=== PATIENT | male | born 1940 | race Caucasian/White ===

== ENCOUNTER 2019-02-25 11:15 | Inpatient (IN) ==
[2019-02-25] MEDS ORDERED: ZOFRAN IV ONE (11:36)
[2019-02-25] MEDS ORDERED: NS 1,000 ML IV ONE (11:36)
[2019-02-25 11:54] LABS: BASO# 0.01 X1000 (0.0-0.2); BASO% 0.1 % (0.0-0.8); EOS# 0.01 X1000 (0.0-0.7); EOS% 0.1 % (0.0-10.0); HEMATOCRIT 16.8 % (42.0-52.0); HEMOGLOBIN 5.4 g/dL (14.0-18.0); IMM GRAN# 0.09 X1000 (0.0-0.04); IMM GRAN% 1.2 % (0.0-0.5); LYMPH# 0.26 X1000 (1.2-3.4); LYMPH% 3.6 % (20.5-51.1); MCH 33.5 PG (27-31); MCHC 32.1 g/dL (33-37); MCV 104.3 FL (81-99); MONO# 0.61 X1000 (0.11-0.59); MONO% 8.3 % (1.7-9.3); MPV 8.7 FL (7.4-10.4); NEUT# 6.34 X1000 (1.4-6.5); NEUT% 86.7 % (42.2-75.2); PLT 278 X1000 (130-400); RBC 1.61 XMIL (4.7-6.1); RDW 15.9 % (11.5-14.5); WBC 7.32 X1000 (4.8-10.8)
[2019-02-25 12:00] LABS: AGAP 10; ALBUMIN 3.3 g/dL (3.5-5.0); ALKALINE PHOSPHATASE 35 U/L (32-122); BUN 20 mg/dL (8-22); CALCIUM 7.7 mg/dL (8.8-10.2); CHLORIDE 99 mmol/L (98-107); COSMO 268; ESTIMATED GFR > 60; GLUCOSE 143 mg/dL (70-104); GOT 13 U/L (10-34); GPT 7 U/L (10-44); POTASSIUM 4.4 mmol/L (3.5-5.1); SODIUM 131 mmol/L (136-145); TCO2 22 mmol/L (25-35); TOTAL PROTEIN 5.8 g/dL (6.3-8.3)
[2019-02-25] MEDS ORDERED: NS 500 ML IV ONE (12:02)
[2019-02-25 12:18] LABS: LYMPHS 14 % (21-51); MONO 10 % (1-9); SEGS 76 % (42-75)
[2019-02-25 12:19] LABS: ANISOCYTOSIS 1+; HYPOCHROM 3+; MICROCYTOSIS 2+
[2019-02-25 12:50] LABS: IRON SATURATION 23 %; TIBC 179 ug/dL; TOTAL IRON 42 ug/dL (53-167); UNBOUND IRON 137 ug/dL (112-346)
[2019-02-25 12:51] LABS: INR 1.06; PROTIME 14.3 Seconds (11.0-16.0)
[2019-02-25 12:56] LABS: PTT 35.6 Seconds (22.3-41.8)
[2019-02-25] MEDS ORDERED: PROTONIX IV SCH (13:00)
[2019-02-25] MEDS ORDERED: SODIUM CHLORIDE 0.9% INJ SCH ×2 (13:00→21:00)
[2019-02-25] MEDS ORDERED: ZOFRAN IV PRN (13:01)
[2019-02-25] MEDS ORDERED: TYLENOL PO PRN (13:01)
--- NOTE | 2019-02-25 13:02 | Diag Imaging Result Doc PS360 ---
EXAM: FLAT/UPRIGHT ABD/1 VIEW CHEST HISTORY: anemia/sob TECHNIQUE: Flat and upright with chest, three views COMPARISON: 10/01/2012 FINDINGS: The lungs are well expanded. Left granuloma. No cardiomegaly. No pneumonia. No free air beneath the diaphragm. The gallbladder has been removed. No organomegaly. There is stool throughout the colon. IMPRESSION: [id number] constipation. Electronically signed by Lul Anguiano 02/25/2019 1:00 PM
[2019-02-25] MEDS ORDERED: NS 500 ML ONE (14:03)
--- NOTE | 2019-02-25 14:52 | HISTORY AND PHYSICAL ---
PRIMARY CARE PROVIDER: Dr. Americo Pace. CHIEF COMPLAINT: Passed out. HISTORY OF PRESENT ILLNESS: Mr. Pancho Elizabeth is a 78-year-old male with a medical history of melanoma diagnosed back in 2013 where he had an excision approximately a year ago in 2018. He had some left neck swelling, swollen lymph nodes and was started on chemotherapy specifically Mektovi and Braftovi followed by Dr. Julien Reyes with [facility]. Patient states for at least a year he has had progressive weakness and fatigue just gradual, and then since Saturday he noticed the weakness was much more worse and gradual. On Saturday, he noticed that his weakness and fatigue had worsened and then yesterday developed some stomach pain and nausea. He was headed to the kitchen to make something to eat and passed out. After waking up on the floor, he crawled to a garbage can and vomited. Color is unknown. He then had incontinence of stool with a trace or small amount of blood in it. The rest of the stool he states was brown and loose. He denies any fever or chills. He states that he had no shortness of breath or chest pain. Denies any ringing of the ears. He had noticed that he had been having more swelling in his feet and ankles. He has had at least a 10 pound weight loss over the last 1-1/2 months. He also stated his taste buds have since changed in the last month and a half, and decrease in his appetite. He has had an exercise intolerance over the last 3 to 4 months. He had at one point in time been diagnosed with iron-deficiency anemia, and only took about a month's worth of iron replacement, but stopped that as well. He has one hemorrhoid but states he does not usually have any bleeding from it. He has had a history of GERD with peptic ulcer disease. He states he was treated for H. Pylori in the . His last EGD was in 2003. No recent blood transfusions required. He has also noted for the last year he has had some mild dysphagia that comes and goes, and claims to have had some black stools that has been off and on over the last few months. Otherwise, prior to yesterday, he has not had any other issues. We will admit to [facility] as he has a significant anemia with a hemoglobin of 5.4 and hematocrit 16.8. Currently, vital signs are stable but is likely orthostatic. There was no acute bleeding noted at this time. We will consult Dr. Benitez with [facility] who is honey liquefier, and will consult Dr. Alvarez who is with Gastroenterology for any further recommendations. He will also receive 2 units of packed red blood cells for transfusion, and we will put him on a clear liquid diet for now along with IV Protonix and oral Carafate. PAST MEDICAL HISTORY: 1. Melanoma in 2013. 2. Left neck swelling with lymph nodes with return of cancer in 2019 on daily chemo Mektovi and Braftovi. 3. Chronic back pain. 4. GERD with peptic ulcer disease history. 5. BPH. 6. Iron deficiency anemia. 7. Hemorrhoids. PAST SURGICAL HISTORY: 1. Cancer and melanoma excision. 2. Partial thyroidectomy due to a non cancerous nodule. 3. Cholecystectomy. 4. Last EGD in 2003. SOCIAL HISTORY: No tobacco, maybe a glass of wine once or twice a year. Denies illicit drug use. He is . No kids. 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 Ambulates without difficulty, but has had an exercise intolerance over the last 3 to 4 months. FAMILY HISTORY: He states his mother from aplastic anemia. She also had coronary artery disease with a CABG in her 70s and diabetes. His father also had coronary artery disease with a CABG in his 70s, but first had coronary disease in his 40s. ALLERGIES: Penicillin of unknown reaction as he states. It just runs in his family so he does not want to take it. He has a milk allergy. HOME MEDICATIONS: 1. Zantac 150 mg p.o. twice daily. 2. Braftovi 650 mg tablets 300 mg p.o. daily. 3. Tamsulosin 0.4 mg p.o. daily. 4. Mektovi 45 mg p.o. twice daily. 5. Proscar 5 mg p.o. daily. REVIEW OF SYSTEMS: Fourteen point review of systems are complete, and all are negative except for those mentioned above in HPI. PHYSICAL EXAMINATION: VITAL SIGNS: Temperature not recorded. Pulse rate 86, respiratory rate 14, blood pressure 117/66, O2 saturation 100% on room air. He is 5 feet 9 inches tall, 139 pounds. BMI of 20.5. GENERAL: Mr. Pancho Elizabeth is a 78-year-old male. He is in no acute distress. He is able to answer questions appropriately. HEENT: Atraumatic, normocephalic. Pupils equal, round, and reactive to light. Extraocular movements intact. Mucous membranes are dry. Sclera is pale. NECK: Trachea midline. CARDIOVASCULAR: S1, S2. Regular rate and rhythm. No rubs, gallops, murmurs. One plus lower extremity edema. +2 dorsalis and radial pulses. Negative JVD or carotid bruits. PULMONARY: Clear to auscultation. Bilateral breath sounds. No accessory muscle use or work of breathing noted. GI: Soft, nontender, and nondistended. Positive bowel sounds x4. EXTREMITIES: Moves all extremities equally. Full range of motion. NEUROLOGIC: Alert and oriented x3. Follows commands. Sensory is intact. SKIN: Warm, dry, intact and pale. LABORATORY DATA: White blood cells 7000, hemoglobin 5, hematocrit 16, and platelet count 278,000. INR is 1.06. PTT 35.6. Sodium 131, potassium 4.4, BUN 20, creatinine 1.0, glucose 143. Calcium 7.7. Iron is 42. Total iron binding capacity is 179. Iron saturation 23 and saturated iron is 137. Ferritin is pending. Bilirubin 0.20. AST 13. ALT 7. Albumin 3.3. Vitamin B12 1500. IMAGING: Chest x-ray and abdominal x-ray with [id number] constipation. Lungs are well expanded. No pneumonia. ASSESSMENT AND PLAN: 1. Syncope likely secondary to severe anemia with hemoglobin of 5 and hematocrit of 16. He is going to give blood transfusion likely due to orthostatic hypotension due to blood volume depletion, possibly severe. 2. Iron deficiency anemia with possible blood loss anemia or drug-induced anemia from the chemotherapy. We will hold that for now and consult oncology/hematology. He is going to get 2 units of blood. It is symptomatic as he did have a syncopal spell last night. Blood pressures and vital signs were stable at this time. We will do serial hemoglobin and hematocrit's. Abdominal x-ray just shows constipation. We will do IV Protonix 40 twice a day along with oral Carafate. He will be on clear liquids for now. Consult gastroenterology and hematology/oncology, and Dr. Benitez with [facility]. 3. History of melanoma in 2013 with recurrence in 2018, and is on daily Mektovi and Braftovi. Followed by Dr. Julien Reyes at [facility] in [place]. We will consult Dr. Eden Benitez with [facility] here for any further recommendations. His physician Dr. Reyes had mentioned taking him off of his chemo to give him a break. 4. Questionable GI bleed due to the anemia of 5 hemoglobin. He stated there was some trace or small amount of blood in the stool, and intermittently will have black stools, but otherwise states he has a bowel movement every other day that is normally brown in color and normal consistency. Abdominal x-ray shows constipation. 5. GERD with history of peptic ulcer disease. He takes Zantac at home. We will do IV Protonix here. GI is following. 6. BPH. He is on Proscar and Flomax. Would like to be able to get those resumed once he gets blood transfusion so he does not have hypotensive episodes. 7. Deep venous thrombosis prophylaxis. SCD's. 8. Complaints of weakness and fatigue over the past year. Physical Therapy is ordered, and should improve with blood transfusion. 9. 1+ lower extremity ankle and feet swelling. He did state that there is mention from his physician Dr. Julien Reyes at the [facility] physician that follows him that there may possibly start him on some Lasix, but they have not done that. 10. Protein calorie malnutrition. His albumin is 3.3. He has admitted to having a 10 pound weight loss over the past 1 and half months along with change in taste buds, decreased appetite, and he also admits to having some mild dysphagia that comes and goes over the past 1 year. Currently, on clear liquid diet. Can consider adding a nutritional consult. I will add that. Dictated by KADEEM Richmond for Fox Almodovar MD Addendum: Patient seen and examined by myself. Agree with KADEEM note. It reflects my assessment and plan. Patient is being admitted to hospital for anemia. We are not sure it is secondary to his chemotherapy or secondary to GI bleeding. Will transfuse 2 units of blood and will consult [facility] and will go from there. His primary care doctor, Americo Pace will be taking care of him in [facility]. cc: KADEEM Richmond MD Robert Allen, MD [facility]
--- NOTE | 2019-02-25 16:23 | PROVIDER DOCUMENTATION ---
This chart was entered by Audra Cruz Scribe, acting as scribe for Nu Jackson MD. HPI-General Adult - General Chief Complaint: Weakness Stated Complaint: SYNCOPE Time Seen by Provider: 02/25/19 11:32 Source: patient Allergies/Adverse Reactions: Patient Allergies Allergy/AdvReac Type Severity Reaction Status Date / Time milk Allergy Severe NAUSEA/VOMI Verified 10/01/12 10:59 TING Penicillins Allergy Unknown Unknown Verified 10/01/12 10:59 Home Medications: Home Medication List Medication Instructions Recorded Confirmed Last Taken Type Finasteride [Proscar] 5 mg PO DAILY 10/01/12 02/25/19 10/01/12 18:00 History Binimetinib [Mektovi] 45 mg PO BID 02/25/19 02/25/19 Unknown History Encorafenib [Braftovi] 6 tab PO DAILY 02/25/19 02/25/19 Unknown History Tamsulosin HCl 0.4 tab PO DAILY 02/25/19 02/25/19 Unknown History - History of Present Illness -Gen Adult Nature of Presenting Problems: Patient is a 78 year old male who presents to the ED via EMS with weakness. States having nausea, vomiting, diarrhea and syncope last night. Reports he is on chemo for melanoma. Denies pain. Location of Pain/Injury: reports: none Pain Radiation: reports: no radiation Quality of Pain: reports: none Severity: reports: mild Onset/Duration: reports: last night Timing: reports: still present Context/Activities at Onset: reports: light activity Associated Symptoms: reports: diarrhea, nausea, syncope, vomiting, weakness Similar Symptoms Previously?: Yes Recently seen or treated by another doctor?: Yes Review of Systems - Adult - REVIEW OF SYSTEMS - ADULT Constitutional: reports: no symptoms reported. denies: chills, fever, fatique Eyes: reports: no symptoms reported Ears, Nose, Mouth & Throat: reports: no symptoms reported Cardiovascular: reports: no symptoms reported Respiratory: reports: no symptoms reported Gastrointestinal: reports: no symptoms reported. denies: diarrhea, nausea, vomiting Genitourinary: reports: no symptoms reported Musculoskeletal: reports: see HPI, muscle weakness. denies: back pain, neck pain Integumentary: reports: no symptoms reported Neurological: reports: see HPI, syncope. denies: dizziness/vertigo, headache /migraines Psychiatric: reports: no symptoms reported Endocrine: reports: no symptoms reported Hematologic/Lymphatic: reports: no symptoms reported Allergic/Immunologic: reports: no symptoms reported All Other Systems: Reviewed and Negative Past History - Adult - PAST MEDICAL HISTORY-ADULT Review of Records: reports: Old Records Reviewed, Nursing Assessment Review, Med ications Reviewed, Social history reviewed & non-contributory. Major Childhood Illnesses: reports: denies history Cardiovascular: reports: denies history Respiratory: reports: denies history Gastrointestinal: reports: denies history Obstetrical/Gynecological: reports: denies history Genitourinary: reports: denies history Musculoskeletal: reports: denies history Neurological: reports: denies history Endocrine/Immune: reports: denies history Other Conditions: reports: other cancer (melanoma) - PRIOR SURGERIES/PROCEDURES Surgical/Procedure History: reports: reviewed, not pertinent - IMMUNIZATION STATUS Childhood Immunizations: See Nurse Assessment Flu Vaccine: See Nurse Assessment - FAMILY HISTORY Family History: reviewed, not pertinent - SOCIAL HISTORY Smoking: denies Substance Use: alcohol Alcohol Use Frequency: occasionally Physical Exam-General - PHYSICAL EXAM-ADULT Initial Vital Signs Reviewed: Yes - CONSTITUTIONAL General Appearance: alert, no apparent distress. negative: lethargic - HEAD, EARS, NOSE, MOUTH & THROAT HENMT: normocephalic/atraumatic, moist mucous membranes. negative: angioedema - RESPIRATORY Respiratory: chest non-tender, lungs clear, normal breath sounds. negative: crackles - CARDIOVASCULAR Cardiovascular: normal peripheral pulses, regular rate, rhythm. negative: tachycardia - GASTROINTESTINAL (ABDOMEN) Abdominal Exam: normal bowel sounds, non tender, soft. negative: rigid - MUSCULOSKELETAL Extremity: non-tender, normal inspection. negative: deformity, erythema - SKIN Integumentary: normal color, normal turgor, warm/dry. negative: cyanosis, ecchymosis, jaundice - NEUROLOGIC Neurologic: grossly normal. negative: aphasia, facial droop - PSYCHIATRIC Psych/Mental Status: normal mood/affect, oriented x 3. negative: anxious Progress - PLAN OF CARE/RESULTS Progress/Plan/Lab Results: Vital Signs - 8 hr 02/25/19 10:58 Pulse Rate 86 Respiratory Rate 14 Blood Pressure 117/66 O2 Sat by Pulse Oximetry 100 Result Diagrams: 02/25/19 11:30 02/25/19 11:30 - EKG 1 Time of EKG reading by physician:: 11:14 EKG Read and Signed by:: Nu Jackson EKG Interpretation (*Must complete 3 of following elements*): Abnormal Rate: 91 Rhythm: normal sinus rhythm [place]: normal SD Interval: normal Comments: nonspecific ST abnormality. - CONSULTS/PCP/HOSPITALIST Notification #1 *Consult/PCP/Hospitalist*: Dr. Bearden Time Discussed: 12:25 Reason/Comments: Dr. Jackson consulted with Dr. Bearden about patient. Departure - Departure Date of Disposition Decision: 02/25/19 Time of Disposition Decision: 12:25 DIAGNOSIS: Anemia Disposition: ADMITTED INPATIENT 09 Certified Medical Emergency: Emergent Condition: Fair - Critical Care Note This patient required my direct & personal management of CC.: No Attestation - Physician/ TAYE Attestation The physician spent face to face time with patient:: Yes Advanced Practice Provider documentation review:: Supervising physician onsite and consulted in the evaluation and care of this patient. The physician did have a face to face encounter with the patient. This chart was documented by the indicated scribe, (Audra Cruz Scribe) and accurately reflects the services I performed and decisions made by Manuel espinoza,Nu Weiner MD, as attested by the provider's signature.
[2019-02-25 18:52] LABS: URINE SOURCE CLEAN CATCH
[2019-02-25 18:57] LABS: BILIRUBIN URINE NEGATIVE (NEGATIVE); BLOOD URINE NEGATIVE (NEGATIVE); COLOR YELLOW; GLUCOSE URINE NEGATIVE (NEGATIVE); KETONE URINE NEGATIVE (NEGATIVE); LEUKOCYTES URINE NEGATIVE (NEGATIVE); NITRITE URINE NEGATIVE (NEGATIVE); PROTEIN URINE NEGATIVE (NEGATIVE); SP GRAVITY URINE 1.013; TURBIDITY URINE CLEAR (CLEAR); UROBILINOGEN URINE NORMAL (NORMAL)
[2019-02-25 18:58] LABS: UR EPITHELIAL CELLS <10 /HPF (<10); URINE BACTERIA NEGATIVE /HPF; URINE RBC <10 /HPF (<10); URINE WBC <10 /HPF (<10)
[2019-02-25] MEDS: CARAFATE LIQUID PO SCH ×2 (19:01→20:11)
--- NOTE | 2019-02-25 19:10 | PROGRESS NOTE ---
DATE: 02/25/2019 VITAL SIGNS: Temperature 99.1 degrees, heart rate 88, respirations 17, blood pressure 124/49 O2 saturation on room air 100%. SUBJECTIVE: Mr. Elizabeth is a 78-year-old white man who had a syncopal episode this morning and presented to [facility]. I was notified by the hospitalist nurse practitioner of his low hemoglobin of 5 and hematocrit 16. There was history of possible melena and a small amount of bright red stool. He seemed to have normal activities on Saturday of this week and then Saturday became weaker, then having a syncopal episode this morning. There is history of 10-pound weight loss of over the past month and a half. 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 Recent PET scans have not shown evidence of recurrent disease. He is on chemotherapy from [facility], and he states the medicine occasionally causes nausea. He had some vomiting after his syncopal episode, but he did not notice any blood in the emesis. He has received 2 units of blood and is feeling better. His color is improved. PLAN: Hematocrit will be rechecked in the morning. Chest x-ray was clear. Abdominal film revealed constipation, and no evidence of obstruction. CT with contrast is ordered for tomorrow morning. Gastroenterology consultation is obtained with Dr. Friedman. He probably will need endoscopy. cc: Americo Pace MD
[2019-02-25] MEDS: NEXIUM IV SCH (20:12)
[2019-02-25 22:34] LABS: FERRITIN 442 ng/mL (30-400)
[2019-02-25 22:44] LABS: HEMATOCRIT 22.8 % (42.0-52.0); HEMOGLOBIN 7.4 g/dL (14.0-18.0)
[2019-02-26] MEDS: CARAFATE LIQUID PO SCH ×5 (01:15→20:34)
[2019-02-26 04:36] LABS: BASO# 0.02 X1000 (0.0-0.2); BASO% 0.3 % (0.0-0.8); EOS% 3.1 % (0.0-10.0); HEMOGLOBIN 7.2 g/dL (14.0-18.0); IMM GRAN# 0.11 X1000 (0.0-0.04); IMM GRAN% 1.7 % (0.0-0.5); LYMPH% 7.8 % (20.5-51.1); MCH 31.2 PG (27-31); MCHC 32.7 g/dL (33-37); MCV 95.2 FL (81-99); MONO# 0.76 X1000 (0.11-0.59); MONO% 11.9 % (1.7-9.3); MPV 8.8 FL (7.4-10.4); NEUT# 4.79 X1000 (1.4-6.5); NEUT% 75.2 % (42.2-75.2); PLT 218 X1000 (130-400); RBC 2.31 XMIL (4.7-6.1); RDW 19.6 % (11.5-14.5); WBC 6.38 X1000 (4.8-10.8)
[2019-02-26 05:13] LABS: AGAP 10; CHLORIDE 107 mmol/L (98-107); GLUCOSE 94 mg/dL (70-104); POTASSIUM 3.7 mmol/L (3.5-5.1); SODIUM 138 mmol/L (136-145); TCO2 21 mmol/L (25-35)
[2019-02-26 05:14] LABS: ALB/GLOB RATIO 1.4; ALBUMIN 2.7 g/dL (3.5-5.0); ALKALINE PHOSPHATASE 29 U/L (32-122); BUN 18 mg/dL (8-22); CALCIUM 7.5 mg/dL (8.8-10.2); COSMO 277; CREATININE 1.1 mg/dL (0.7-1.2); ESTIMATED GFR > 60; GOT 13 U/L (10-34); GPT 6 U/L (10-44); TOTAL BILIRUBIN 0.66 mg/dL (0.20-1.00); TOTAL PROTEIN 4.7 g/dL (6.3-8.3)
--- NOTE | 2019-02-26 08:09 | PROGRESS NOTE ---
DATE: 02/26/2019 Vital signs stable with temperature 98.1 degrees, heart rate 87, respirations 19, blood pressure 102/48, O2 saturation 100% on room air. Hematocrit 22, hemoglobin 7.2, white blood count 6400. The patient is feeling well this morning. There has been no evidence of bleeding. He has no abdominal pain. PLAN: Transfuse 1 unit with goal of 25 hematocrit prior to endoscopy. GI consult. CT scan of his abdomen with IV contrast is scheduled for this morning. cc: Americo Pace MD
[2019-02-26 08:33] LABS: INR 1.19; PROTIME 15.7 Seconds (11.0-16.0)
[2019-02-26 08:34] LABS: PTT 36.4 Seconds (22.3-41.8)
[2019-02-26] MEDS: NEXIUM IV SCH ×2 (09:22→20:34)
[2019-02-26 10:16] LABS: HEMATOCRIT 23.3 % (42.0-52.0); HEMOGLOBIN 7.5 g/dL (14.0-18.0)
[2019-02-26] MEDS ORDERED: MIRALAX PO SCH (11:45)
[2019-02-26] MEDS ORDERED: GOLYTELY PO ONE (14:00)
--- NOTE | 2019-02-26 14:50 | EKG Report ---
Test Performed on : 02/25/2019 11:14:16 AM Test Reason : ER Blood Pressure : / mmHG Vent. Rate : 091 BPM Atrial Rate : 091 BPM P-R Int : 164 ms QRS Dur : 076 ms QT Int : 364 ms P-R-T Axes : 087 033 060 degrees QTc Int : 447 ms Normal sinus rhythm. Nonspecific ST abnormality Abnormal ECG When compared with ECG of 01-OCT-2012 10:47, ST now depressed in Inferior leads ST now depressed in Anterior leads Unconfirmed Result
[2019-02-26 16:30] LABS: HEMOGLOBIN 9.4 g/dL (14.0-18.0)
--- NOTE | 2019-02-26 18:14 | GASTROENTEROLOGY CONSULTATION ---
DATE: 02/26/2019 REASON FOR CONSULTATION: Severe anemia. HISTORY OF PRESENT ILLNESS: Mr. Elizabeth is a 78-year-old male who was admitted on 02/25/2019 for a syncopal episode. The patient has history of melanoma diagnosed back in 2013 where he had an excision approximately a year ago in 2018. He has had some left neck swelling, swollen lymph node and was started on chemotherapy, specifically Mektovi and Braftovi being followed by Dr. Julien Forbes at [facility] in [place]. The patient has experienced progressive weakness and fatigue over the last few months. He had abdominal pain and nausea off and on in the last week. He passed out at his home, and when he woke up, he had 1 episode of vomiting, which was self limiting. The patient had also some incontinence of bowel with a trace of blood in it. The patient was admitted to the hospital for further workup. On admission, he was noted to be severely anemic. He has being given blood transfusion. He has had an EGD done in 2003. He has had a prior history of reflux and peptic ulcer disease, and he has had a colonoscopy done many years ago but does not recall the results of the procedure. Gastroenterology was consulted for further management and evaluation of severe symptomatic anemia. PAST MEDICAL HISTORY: 1. Melanoma in 2012. 2. Left neck swelling with lymph nodes with return of cancer in 2018 and started on daily chemo with Mektovi and Braftovi with Dr. Julien Forbes at [facility]. 3. Chronic back pain. 4. GERD. 5. History of peptic ulcer disease. 6. BPH. 7. Iron-deficiency anemia. 8. Hemorrhoids. PAST SURGICAL HISTORY: Cancer and melanoma excision, partial thyroidectomy due to a noncancerous nodule, cholecystectomy, last EGD in 2003. SOCIAL HISTORY: No tobacco, maybe a glass of wine once or twice a year. Denies any illicit drug abuse. He is . He has no kids. 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 He ambulates without difficulty. FAMILY HISTORY: Mother from aplastic anemia. She had coronary disease with CABG in her 70s and diabetes. His father had coronary disease with a CABG in his 70s. ALLERGIES: To Penicillin. MEDICATIONS AT HOME: Include Zantac, Braftovi, tamsulosin, Mektovi, Proscar. MEDICATIONS IN THE HOSPITAL: Include Tylenol, Nexium twice daily, Zofran. Carafate. DIET: He is currently on a clear liquid diet. REVIEW OF SYSTEMS: Denies any fevers, rigors, chills. He does complain of feeling weak and tired. He has received 2 units of blood transfusion, and receiving a third unit now. His energy level is improved. He denies any vomiting blood. He had 1 episode of vomiting at home. He did have incontinence of stool with maybe a drop of blood it in. He denies any other use of NSAIDs. He does have history of arthritis. He did have episode of syncope at home. PHYSICAL EXAMINATION: Vital signs: Temperature 98.9 degrees, pulse of 79, respiratory rate 18, blood pressure 97/52, saturating 100% on room air. Body weight of 142 pounds 6 ounces. BMI 21 kg. General: Thinly built, lying in bed in no acute distress. HEENT: Pale conjunctivae. No icterus. Pupils equal, reactive to light. Neck: Supple. Abdomen: Soft, nontender, nondistended. No guarding or rebound. Extremities: No cyanosis or clubbing. Neurologic: He is alert, awake, oriented. LABORATORY DATA: His hemoglobin and hematocrit are 7.5 and 23.3, white count of 6.38, platelet count 218,000, MCV of 95.2, INR 1.19, PT of 15.7, PTT of 36.4. Sodium 130, potassium 3.7 chloride 107, bicarb 21, anion gap 10, BUN of 18, creatinine 1.1, magnesium is 2.0. Total bilirubin is 0.66. AST 13, ALT 6, alkaline phosphatase 49, total protein is 4.7, albumin of 2.7 and B12 of 59, folate of 8. IMAGING: X-ray of the abdomen done showed mild to moderate constipation. Chest x-ray showed no acute abnormality. IMPRESSION AND PLAN: 1. Symptomatic anemia. 2. Syncope. 3. Melanoma. He is getting treatment with Mektovi and Braftovi with Dr. Julien Forbes at [facility]. 4. Reflux disease. 5. History of peptic ulcer disease. He takes Zantac at home. 6. Benign prostatic hyperplasia. 7. Constipation on x-ray. 8. Malnutrition. Albumin is 3.3. RECOMMENDATIONS: 1. We will keep the patient on clear liquid diet. We will schedule him for EGD and colonoscopy tomorrow with Dr. Alvarez. We will transfuse as needed. We will keep an eye on the blood counts. We will do Nexium twice daily. He will continue Carafate 4 times daily. We will start him on MiraLAX once daily as well after the GoLYTELY. 2. Further recommendations pending the hospital course. Of note, the patient received Mektovi and Braftovi chemotherapy, which can also contribute to internal GI bleeding. We will follow along. The above plan was discussed with the patient and all questions were answered. Please call us with any further questions. cc: MD Americo Stiles MD Sammy Becdach, MD MTDD
[2019-02-26 22:22] LABS: HEMATOCRIT 27.7 % (42.0-52.0)
[2019-02-27] MEDS: CARAFATE LIQUID PO SCH (07:08)
[2019-02-27] MEDS ORDERED: DIPRIVAN 1% ONE (07:26)
[2019-02-27] MEDS ORDERED: XYLOCAINE-MPF 2% ONE (07:28)
--- NOTE | 2019-02-27 08:54 | PROGRESS NOTE ---
DATE: 02/27/2019 Vital signs stable with temperature 98.2 degrees, heart rate 75, respirations 22, blood pressure 114/48, and O2 saturation on room air 100%. Hemoccult was positive. Hematocrit this morning is 25.7. CT scan of his abdomen could not be done yesterday because the scanner is inoperable. He is to have endoscopy with upper and lower today by Dr. Alvarez. GI indicated that his chemo could call some internal hemorrhoids and that might be the source of bleeding. Hopefully, his bleeding source can be determined and either cautery or treatment to stop his bleeding can be initiated. If his bleeding is stable and controlled by this afternoon, discharge will be considered. cc: Americo Pace MD
--- NOTE | 2019-02-27 09:02 | ENDOSCOPY OPERATIVE NOTE ---
[facility] ENDOSCOPY OPERATIVE NOTE , PATIENT: Pancho Elizabeth ADM DATE: 02/27/2019 MR #: [id number] : 1940 COLONOSCOPY PROCEDURE REPORT PROCEDURE DATE: 02/27/2019 SURGEON: Eliecer Alvarez MD STATUS: inpatient LITERATURE PROFESSOR: PREOPERATIVE DIAGNOSIS: The patient is a 78 yr old male here for a colonoscopy due to anemia, non-sp ecific. PROCEDURE PERFORMED: Colonoscopy with biopsy MEDICATIONS: Per Anesthesia PREP TYPE: GoLytely
[2019-02-27 16:30] VITALS: BP 140/59
--- NOTE | 2019-02-27 22:00 | HEMO/ONC CONSULTATION ---
DATE: 02/27/2019 CONSULTATION REQUESTED BY: Hospitalist service. REASON FOR CONSULTATION: Patient is known, metastatic melanoma. HISTORY OF PRESENT ILLNESS: Mr. Elizabeth is a 78-year-old male who is known to our practice as he is currently being treated for metastatic melanoma by Dr. Julien Reyes over at the [facility]. The patient is currently taking Mektovy/Braftovi for his disease. He was at home and actually had a syncopal episode and bright red blood per rectum. He was brought into the emergency room for further evaluation. He was found to have an acute GI bleed. He is now status post 3 units of packed red blood cells, and his hemoglobin is up to 9.0. He has undergone colonoscopy and endoscopy with Dr. Alvarez. Most recently, the patient was seen by Dr. Julien Reyes on 02/11/2019. His most recent scan on 12/15/2018 with stable. Patient's main question is about when he should restart his medications. PAST MEDICAL HISTORY: 1. Recurrent metastatic melanoma. Initially diagnosed back in 2012. He had recurrent disease it appears back in 2018. Has been on Braftovi and Mektovy since that time. 2. Chronic back pain. 3. GERD. 4. BPH. 5. Iron deficiency anemia. 6. Hemorrhoids. PAST SURGICAL HISTORY: 1. Excision of a previous melanoma. 2. Partial thyroidectomy. 3. Cholecystectomy. SOCIAL HISTORY: Patient denies any tobacco use. He drinks a glass of wine very occasionally. He denies any illicit drug use. 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 FAMILY HISTORY: Positive for aplastic anemia, coronary artery disease. REVIEW OF SYSTEMS: A 12 point review of systems has been completed except for what was expressed in the HPI. PHYSICAL EXAMINATION: Vital Signs: Temperature 98.3 degrees, heart rate 85, respirations 16, blood pressure 131/59, O2 saturation 99% on room air. General: This is a male lying in his hospital bed. He is in no acute distress. He has a family member at bedside. Head: Normocephalic, atraumatic. Eyes: Pupils equal, round, and reactive. Ears, Nose, Throat, Neck, Mouth: Oral mucosa appears to be normal. Gross auditory acuity is intact. Cardiovascular: Regular rate. Respiratory: Normal respiratory effort. Gastrointestinal: Abdomen appears to be nondistended. Musculoskeletal: No bony abnormalities. Skin: No obvious rashes noted. Neurologic: Patient is alert and oriented with no obvious focal motor deficits noted. LABS AND STUDIES: White blood cells are 6.38, hemoglobin 9.0, hematocrit 25.7, platelet count is 218,000. ASSESSMENT AND PLAN: 1. Stage IV metastatic melanoma. The patient will continue to hold his medications for the time being. Our plan will be for the patient to hold those until he can follow up with Dr. Reyes at his scheduled outpatient appointment on 03/11/2019. There is some question of whether or not the medication is also affecting the patient's eyes. He did recently follow up with a retina specialist, so he and Dr. Reyes can discuss all those findings and decide further treatment planning at his followup appointment. 2. Gastrointestinal bleed. He has had scopes done. Management per Dr. Alvarez. It seems that his counts are overall stable for the time being. 3. Anemia. He does have a history of iron deficiency anemia. He has also had acute blood loss anemia. Seems to have recovered after 3 units of packed red blood cells. He did have mildly low iron levels coming in, but those should have been repleted with the amount of blood that he was given through this hospitalization. 4. Syncope. This is likely secondary to his severe anemia and blood loss. No further episodes noted. 5. Gastroesophageal reflux disease, with a history of peptic ulcer disease. Aware. Thank you for consulting us on Mr. Elizabeth. We will continue to follow along and adjust our treatment per his hospital course. Dictated by MEGAN Salter for Eden Benitez MD cc: MD Americo Peña MD I have seen and examined the patient and the above note reflects my history, physical exam, assessment and plan. Eden STEWARD
--- NOTE | 2019-02-28 14:15 | DISCHARGE SUMMARY ---
ADMISSION DATE: 02/25/2019 DISCHARGE DATE: 02/27/2019 FINAL DIAGNOSES: Gastrointestinal bleeding due to cecal colitis, possible inflammatory bowel disease, and both internal and external hemorrhoids. CONSULTATION: Dr. Valentine and Dr. Alvarez, GI. PROCEDURE: EGD and colonoscopy today. Findings: Inflammatory cecal area, internal and external hemorrhoids. Biopsies were taken and results path report is pending. DISCHARGE MEDICATION: Usual medication at home plus Zofran 4 mg (20) 1 q.4 hours p.r.n. nausea. ADDITIONAL DIAGNOSES: Anemia secondary to GI blood loss, history of metastatic melanoma from his eye to his neck. HISTORY: This is the first recent [facility] admission for this 78-year-old, white man who presented to the emergency room following a syncopal episode with hypotension due to anemia. Hematocrit was 16. He was transfused 3 units of blood. Hematocrit kevin to max of 29, then today was 26. He has had no significant additional bleeding. There was no area of active bleeding on colonoscopy, although colon area was a little bit raw and some biopsies were taken. He is feeling well this afternoon and is discharged home on the above medications to be seen back in the office in 1 week for followup. Hemoglobin will be checked at that time. Biopsy report should be back and determination whether to treat the cecal inflammatory area will be made. cc: Americo Pace MD
--- NOTE | 2019-03-02 09:58 | ENDOSCOPY OPERATIVE NOTE ---
[facility] ENDOSCOPY OPERATIVE NOTE , PATIENT: Pancho Elizabeth ADMISSION DATE: 02/27/2019 MR#: [id number] : 1940 EGD PROCEDURE REPORT PROCEDURE DATE: 02/27/2019 SURGEON: Eliecer Alvarez MD STATUS: inpatient [employer] [place] [place]: PREOPERATIVE DIAGNOSIS: The patient is a 78 yr old male here for an EGD due to anemia. PROCEDURE PERFORMED: EGD, diagnostic MEDICATIONS: Per Anesthesia TOPICAL ANESTHETIC: none CONSENT: The patient understands the risks and benefits of the procedure and understands that these r isks include, but are not limited to: sedation, allergic reaction, infection, perforation and/or bleeding. Alternative means of evaluation and treatment include, among others: physical exam, x-rays, and/or surgical intervention. The patient elects to proceed with this endoscopic procedure. HISORY AND PHYSICAL: 02/27/2019 function. Hand hygiene and appropriate measures for infection prevention was taken. After the risks, benefits and alternatives of the procedure were thoroughly explained, Informed consent was verified, confirmed and timeout was successfully executed by the treatment team. The patient was anesthetized with topical anesthesia and the [id number] ([id number]) and [id number] ([id number]) endoscope was introduced through the mouth and advanced to the secon d portion of the duodenum. Retroflexion was performed in the stomach and revealed a hiatal hernia. The gastroscope w as then slowly withdrawn and removed. STOMACH: The stomach was normal. DUODENUM: The duodenum was normal. ESOPHAGUS: A 3 cm hiatal hernia was noted. The z-line was noted at 36cm from the incisors. The z-l ine appeared normal. SPECIMENS REMOVED: No ADVERSE EVENTS: There were no complications. POSTOPERATIVE DIAGNOSIS: 1. Small hiatal hernia. The mucosa of the esophagus appeared normal 2. The stomach was normal 3. The duodenum was normal 4. No etiology of patient's anemia found on EGD. RECOMMENDATIONS: Continue to colonoscopy procedure REPEAT EXAM: Eliecer Alvarez MD eSigned: Eliecer Alvarez MD 02/27/2019 8:53 AM cc: PATIENT NAME: Pancho Elizabeth MR#: [id number]
== END 2019-02-27 18:32 | disposition home or self-care (01) | DRG 393 ==
LOC: P.ED 11:15 → 3S 13:32
PROVIDERS: ADMIT Family Medicine; ATTEND Family Medicine